=== PATIENT | female | born 1970 | race Caucasian/White ===

== ENCOUNTER 2017-07-17 11:43 | Inpatient (IN) ==
[2017-07-17 13:20] LABS: Apearance,Urine CLOUDY (Clear); Bacteria,Urine Occasional /HPF (Few); Bilirubin,Urine Small mg/dL (Negative); Blood, Urine Negative (Negative); Glucose,Urine (UA) Negative (Negative); Ketones,Urine 80 mg/dL (Negative); Mucus,Urine Moderate /LPF (Occasional); Nitrite,Urine Positive (Negative); Protein,Urine 30 MG/DL; RBC,Urine 3 /HPF (0-4); Squamous Epithelial Cell,Urine Few /HPF (0-10); Urine Color Amber (Yellow); Urine Specific Gravity 1.029 (1.001-1.035); WBC,Urine 2 /HPF (0-6)
[2017-07-17] MEDS ORDERED: ONDANSETRON 4 MG/2 ML VIAL IV STA (13:42)
[2017-07-17] MEDS ORDERED: SODIUM CHLORIDE 0.9% 1,000 ML IV STA (13:42)
[2017-07-17] MEDS ORDERED: ALUM/MAG/SIMETH/LIDO VISC 1:1 30 ML BOTTLE PO STA (13:42)
[2017-07-17] MEDS ORDERED: ALUM/MAG/SIMETH/LIDO VISC 1:1 30 ML BOTTLE PO ONE (13:46)
[2017-07-17] MEDS ORDERED: ONDANSETRON 4 MG/2 ML VIAL ONE (13:46)
[2017-07-17 13:53] LABS: Basophils # 0.1 10*3/uL (0.0-0.2); Basophils % 0.4 % (0.0-0.8); Eosinophils # 0.1 10*3/uL (0.0-0.87); Eosinophils % 0.6 % (0.00-10.9); Hematocrit 34.6 VOL% (35.7-47.0); Hemoglobin 10.4 GM/DL (12.0-16.0); Immature Granulocytes % 0.4 %; Immature Granulocytes Absolute 0.05 #; Lymphocytes # 2.7 10*3/uL (1.4-4.0); Lymphocytes % 20.4 % (21.3-54.2); Mean Corpuscular HGB Conc 30.1 GM/DL (32-36); Mean Corpuscular Hemoglobin 24 PG (27-34); Mean Corpuscular Volume 80.7 FL (87-102); Monocytes # 1.3 10*3/uL (0.11-0.8); Monocytes % 9.5 % (1.7-12.7); Neutrophils # 9.1 10*3/uL (1.4-7.4); Neutrophils % 68.7 % (38.7-73.9); Platelet Count 265 T/CUMM (130-400); Red Blood Count 4.29 MC/CUMM (3.8-5.5); Red Cell Distribution Width 18.7 % (9.3-17.3); White Blood Count 13.2 T/CUMM (4-12)
[2017-07-17 14:13] LABS: Alanine Aminotransferase 30 U/L (13-56); Albumin 3.5 G/DL (3.4-5.0); Alkaline Phosphatase 89 U/L (45-117); Amylase 20 U/L (25-115); Aspartate Amino Transferase 22 U/L (0-37); Bilirubin,Total < 0.39 MG/DL (0.2-1.0); Blood Urea Nitrogen 9 MG/DL (7-18); Calcium 8.8 MG/DL (8.5-10.1); Glucose 91 MG/DL (74-106); Osmolality,Calculated 271.8 MOS/KG (273-304); Potassium 4.2 MMOL/L (3.5-5.1); Sodium 137 MMOL/L (136-145); Total Protein 7.2 G/DL (6.4-8.3)
[2017-07-17] MEDS ORDERED: CIPROFLOXACIN INJ 400 MG in PREMIX 1 EACH IV STA (15:17)
[2017-07-17] MEDS ORDERED: CIPROFLOXACIN 400 MG/200 ML PREMIX IV ONE (15:21)
[2017-07-17] MEDS ORDERED: diphenhydrAMINE 50 MG/1 ML VIAL IV STA (15:40)
[2017-07-17] MEDS ORDERED: diphenhydrAMINE 50 MG/1 ML VIAL ONE (15:45)
[2017-07-17] MEDS ORDERED: PIPERACILLIN/TAZOBACTAM 3,375 MG in SODIUM CHLORIDE 0.9% 100 ML IV STA (15:45)
[2017-07-17] MEDS ORDERED: SODIUM CHLORIDE 0.9% 100 ML IV ONE (16:04)
[2017-07-17] MEDS ORDERED: PIPERACILLIN/TAZOBACTAM 3,375 MG VIAL IV ONE (16:04)
[2017-07-17] MEDS ORDERED: MAGNESIUM SULF RIDER 4 GM in PREMIX 1 EACH IV PRN (16:25)
[2017-07-17] MEDS ORDERED: MAGNESIUM SULF RIDER 2 GM in PREMIX 1 EACH IV PRN (16:25)
[2017-07-17] MEDS: PIPERACILLIN/TAZOBACTAM 3,375 MG in SODIUM CHLORIDE 0.9% 100 ML IV SCH ×2 (17:57→23:59)
[2017-07-17] MEDS: SODIUM CHLORIDE 0.9% 1,000 ML IV SCH (18:09)
[2017-07-17] MEDS: MORPHINE 4 MG/1 ML VIAL IV PRN ×2 (18:14→21:48)
[2017-07-18] MEDS: MORPHINE 4 MG/1 ML VIAL IV PRN ×3 (02:31→15:26)
[2017-07-18] MEDS: SODIUM CHLORIDE 0.9% 1,000 ML IV SCH ×4 (06:18→16:02)
[2017-07-18 07:00] LABS: Basophils % 0.5 % (0.0-0.8); Eosinophils # 0.1 10*3/uL (0.0-0.87); Eosinophils % 1.6 % (0.00-10.9); Hematocrit 30.5 VOL% (35.7-47.0); Hemoglobin 9.3 GM/DL (12.0-16.0); Immature Granulocytes % 0.3 %; Immature Granulocytes Absolute 0.02 #; Lymphocytes # 1.9 10*3/uL (1.4-4.0); Lymphocytes % 24.4 % (21.3-54.2); Mean Corpuscular HGB Conc 30.5 GM/DL (32-36); Mean Corpuscular Hemoglobin 25 PG (27-34); Mean Corpuscular Volume 80.5 FL (87-102); Mean Platelet Volume 12.7 FL (9.6-12.0); Monocytes # 0.8 10*3/uL (0.11-0.8); Monocytes % 10.5 % (1.7-12.7); Neutrophils % 62.7 % (38.7-73.9); Platelet Count 237 T/CUMM (130-400); Red Blood Count 3.79 MC/CUMM (3.8-5.5); Red Cell Distribution Width 18.9 % (9.3-17.3); White Blood Count 7.9 T/CUMM (4-12)
[2017-07-18 07:36] LABS: Albumin 2.7 G/DL (3.4-5.0); Bilirubin,Total 0.8 MG/DL (0.2-1.0); Calcium 8.1 MG/DL (8.5-10.1); Osmolality,Calculated 279.3 MOS/KG (273-304); Potassium 4.3 MMOL/L (3.5-5.1); Total Protein 5.8 G/DL (6.4-8.3)
[2017-07-18] MEDS: PIPERACILLIN/TAZOBACTAM 3,375 MG in SODIUM CHLORIDE 0.9% 100 ML IV SCH ×2 (08:37→15:23)
[2017-07-18] MEDS: PANTOPRAZOLE 40 MG VIAL IV SCH (08:37)
[2017-07-18] MEDS: ONDANSETRON 4 MG/2 ML VIAL IV PRN ×2 (08:42→15:26)
[2017-07-18] MEDS: ACETAMINOPHEN 325 MG TABLET PO PRN ×2 (12:20→20:11)
[2017-07-18] MEDS ORDERED: VENLAFAXINE XR 75 MG CAPSULE PO SCH (14:00)
[2017-07-18] MEDS ORDERED: ENOXAPARIN 40 MG/0.4 ML SYRINGE SUBCUT SCH (17:30)
[2017-07-19] MEDS: SODIUM CHLORIDE 0.9% 1,000 ML IV SCH ×2 (01:13→08:18)
[2017-07-19] MEDS: MORPHINE 4 MG/1 ML VIAL IV PRN (05:14)
[2017-07-19] MEDS: ONDANSETRON 4 MG/2 ML VIAL IV PRN (05:15)
[2017-07-19 05:20] LABS: Basophils % 0.5 % (0.0-0.8); Eosinophils # 0.2 10*3/uL (0.0-0.87); Eosinophils % 2.7 % (0.00-10.9); Hematocrit 31.4 VOL% (35.7-47.0); Hemoglobin 9.3 GM/DL (12.0-16.0); Immature Granulocytes % 0.3 %; Immature Granulocytes Absolute 0.02 #; Lymphocytes # 2.2 10*3/uL (1.4-4.0); Lymphocytes % 29.4 % (21.3-54.2); Mean Corpuscular HGB Conc 29.6 GM/DL (32-36); Mean Corpuscular Hemoglobin 24 PG (27-34); Mean Corpuscular Volume 81.3 FL (87-102); Mean Platelet Volume 13.3 FL (9.6-12.0); Monocytes # 0.8 10*3/uL (0.11-0.8); Monocytes % 10.5 % (1.7-12.7); Neutrophils # 4.3 10*3/uL (1.4-7.4); Neutrophils % 56.6 % (38.7-73.9); Platelet Count 240 T/CUMM (130-400); Red Blood Count 3.86 MC/CUMM (3.8-5.5); Red Cell Distribution Width 18.6 % (9.3-17.3); White Blood Count 7.5 T/CUMM (4-12)
[2017-07-19 05:51] LABS: % Iron Saturation 3.9 % (18-50); Ferritin 13.7 ng/ml (8-252)
[2017-07-19 06:02] LABS: Folate 3.7 NG/ML (5.4-24.0); Vitamin B12 238 PG/ML (211-911)
[2017-07-19 06:33] LABS: Sedimentation Rate-Westergren 35 MM/HR (0-20)
[2017-07-19] MEDS: PIPERACILLIN/TAZOBACTAM 3,375 MG in SODIUM CHLORIDE 0.9% 100 ML IV SCH ×2 (08:17)
[2017-07-19] MEDS: PANTOPRAZOLE 40 MG VIAL IV SCH (08:17)
[2017-07-19 09:56] LABS: Hemoglobin A1 (Alkaline) 98.3 % (96.5-98.5); Hemoglobin A2 (Alkaline) 1.7 % (1.5-3.5)
[2017-07-19 11:32] VITALS: BP 96/57
[2017-07-19] MEDS ORDERED: VENLAFAXINE XR 75 MG CAPSULE PO ONE (11:43)
[2017-07-19] MEDS ORDERED: VENLAFAXINE XR 75 MG CAPSULE PO SCH (21:00)
[2017-07-19] MEDS ORDERED: AMOXICILLIN/CLAV 875 MG TABLET PO SCH (21:00)
[2017-07-20] MEDS ORDERED: VENLAFAXINE XR 75 MG CAPSULE PO SCH (12:00)
== END 2017-07-19 13:17 | disposition home or self-care (01) | DRG 392 ==
LOC: N.EDINP 11:43 → N.ED 11:43 → N.EDINP 17:33 → N.5E 17:39
PROVIDERS: ADMIT Hospitalist; ATTEND Hospitalist